=== PATIENT | male | born 1985 | race Caucasian/White ===

== ENCOUNTER 2020-06-21 16:34 | Emergency (ER) | payer OTHER ==
[2020-06-21 16:48] VITALS: TEMP 98.1
--- NOTE | 2020-06-21 17:26 | CT ---
EXAMINATION TYPE: CT brain cspine wo con DATE OF EXAM: 06/21/2020 COMPARISON: None HISTORY: Head injury, vomiting CT DLP: 1509.1 mGycm Automated exposure control for dose reduction was used. Ventricles and sulci appear normal. There is no mass effect nor midline shift. There is no sign of in tracranial hemorrhage. The calvarium is intact. There is no evidence of cerebral edema. Skull base is intact. There is normal aeration of the temporal bones. Cervical vertebra have normal spacing and alignment. Posterior elements are intact. Facet joints appe ar intact. Prevertebral soft tissues appear normal. IMPRESSION: Negative CT scan of the cervical spine. Negative CT scan of the brain.
[2020-06-21] MEDS ORDERED: ONDANSETRON ODT 4 MG TAB PO STA (18:02)
--- NOTE | 2020-06-21 18:33 | ED ---
General Adult HPI - General Chief complaint: Head Injury Stated complaint: Head Injury Time Seen by Provider: 06/21/20 16:51 Source: patient, RN notes reviewed, old records reviewed Mode of arrival: wheelchair Limitations: no limitations - History of Present Illness Initial comments: 34-year-old male patient no pertinent past medical history presents to ED for evaluation of head injury yesterday. Patient reports that he was in his neurologist attempting to do a trick on a skateboard standing stationary when he landed but slipped out from underneath him and he fell back hitting the back of his head. Patient declining any loss of consciousness. Reports those have her yesterday where he fell but today not having any headache. Also reports he had some neck stiffness yesterday reports it is better today. Patient does report that he has been having nausea and vomiting throughout the day he episodes. Denies any changes in vision. He denies weakness or numbness tingling in his upper or lower extremities. Patient reports that he does have a laceration to the posterior aspect of his head. States that last tetanus was within the last 10 years declines updated today. Denies any other complaints at this time. Systemic: Pt denies fatigue, fever/chills, rash. Pt denies weakness, night sweats, weight loss. Neuro: Pt denies headache, visual disturbances, syncope or pre-syncope. HEENT: Pt denies ocular discharge or irritation, otalgia, rhinorrhea, pharyngitis or notable lymphadenopathy. Cardiopulmonary: Pt denies chest pain, SOB, heart palpitations, dyspnea on exertion. Abdominal/GI: Pt denies abdominal pain, diarrhea. : Pt denies dysuria, burning w/ urination, frequency/urgency. Denies new onset urinary or bowel incontinence. MSK: Pt denies myalgia, loss of strength or function in extremities. Neuro: Pt denies new onset weakness, paresthesias. - Related Data Allergies Allergy/AdvReac Type Severity Reaction Status Date / Time No Known Allergies Allergy Verified 06/21/20 16:48 Review of Systems ROS Statement: Those systems with pertinent positive or pertinent negative responses have been documented in the HPI. ROS Other: All systems not noted in ROS Statement are negative. Past Medical History Past Medical History: No Reported History History of Any Multi-Drug Resistant Organisms: None Reported Past Surgical History: No Surgical Hx Reported Past Psychological History: No Psychological Hx Reported Smoking Status: Never smoker Past Alcohol Use History: None Reported Past Drug Use History: None Reported General Exam - General Exam Comments Initial Comments: Constitutional: NAD, AOX3, Pt has pleasant affect. HEENT: NC/AT, trachea midline, neck supple, no lymphadenopathy. External ears appear normal, without discharge. Mucous membranes moist. Eyes PERRLA, EOM intact. There is no scleral icterus. No pallor noted. Cardiopulmonary: RRR, no murmurs, rubs or gallops, no JVD noted. Lungs CTAB in anterior and posterior winkler. No peripheral edema. Abdominal exam: Abdomen soft and non-distended. Abdomen non-tender to palpation in all 4 quadrants. Bowel sounds active in LLQ. No hepatosplenomegaly. No ecchym osis Neuro: CN II-XII intact. No nuchal rigidity. No raccon eyes, no echols sign, no hemotympanum. No cervical spinal tenderness. MSK: 2 cm laceration posterior aspect of pad. He irrigated approximated with 2 carrie. No posterior calf tenderness bilaterally, homans sign negative bilaterally. Posterior tibialis and radial pulse +2 bilaterally. Sensation intact in upper and lower extremities. Full active ROM in upper and lower extremities, 5/5 stregnth. Limitations: no limitations Course Vital Signs 06/21/20 16:44 Temperature 98.1 F Pulse Rate 61 Respiratory 18 Rate Blood Pressure 139/82 O2 Sat by Pulse 100 Oximetry Procedures - Laceration Laceration #1 Consent Obtained: verbal consent Indication: laceration Site: scalp Size (cm): 2 Description: linear Depth: simple, single layer Pre-repair: wound explored, irrigated extensively, deep structures intact Type of Sutures: other (staple) Number of Sutures: 2 Medical Decision Making - Medical Decision Making 35-year-old male patient was ED for evaluation of head injury yesterday nausea and vomiting today. Laceration. Cardiac history 11 PM. Physical exam displayed laceration which was repaired. Neurologic exam intact, strength intact. CT brain c spine did not display acute process. Patient likely experiencing concussion. Patient we discharge the patient follow-up return p recautions. Case discussed with Dr. Hernandez. Disposition Clinical Impression: Concussion, Laceration Disposition: HOME SELF-CARE Condition: Stable Instructions (If sedation given, give patient instructions): Laceration (ED), Concussion (ED) Additional Instructions: follow-up with primary care provider tomorrow. Follow up with the concussion clinic. Return to ER if any worsening symptoms. Please return for suture removal: Scalp: 7 days Please monitor for signs and symptoms of infection including: redness, warmth, drainage, discharge. Please return to ED if these signs or symptoms occur, new signs or symptoms develop or if condition worsens in anyway. Contact Us: The [facility] General Manager can help you or your athlete see a [facility] Bilingual Medical Assistant for concussion management as soon as possible. Call anytime, at . Athletes should not return to their sport until symptoms have resolved and a doctor has cleared the athlete to participate in practice and games. Is patient prescribed a controlled substance at d/c from ED?: No Referrals: None,Stated [Primary Care Provider] - 1-2 days Luca Marquez [STAFF PHYSICIAN] - 1-2 days
[2020-06-21] MEDS ORDERED: METOCLOPRAMIDE 10 MG TAB PO STA (18:54)
[2020-06-21] MEDS ORDERED: ONDANSETRON 4 MG ODT STARTER PACK 2 TAB BTL PO STA (18:55)
[2020-06-21 19:25] VITALS: BP 132/99; PULSE 53; RESP 16
== END 2020-06-21 19:27 | disposition home or self-care (01) ==
LOC: EC 16:34
DX: S01.01XA Laceration without foreign body of scalp, initial encounter (principal); S06.0X9A Concussion with loss of consciousness of unspecified duration, initial encounter; W01.198A Fall on same level from slipping, tripping and stumbling with subsequent striking against other object, initial encounter; Y93.51 Activity, roller skating (inline) and skateboarding; Y92.331 Roller skating rink as the place of occurrence of the external cause
CPT/HCPCS: 72125; 70450; 99284; 12001; S0119